=== PATIENT | female | born 2000 | race Caucasian/White ===

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

== ENCOUNTER → 2021-07-01 | Outpatient (CLI) | payer OTHER ==
[~2021-07-01] MED LIST changes: +ALBU90OI INH
[2021-07-01 15:20] LABS: BASOPHILS ABSOLUTE AUTO 0.08 K/mm3 (0.00-0.23); BASOPHILS PERCENT AUTO 1 % (0-2); EOSINOPHILS ABSOLUTE AUTO 0.09 K/mm3 (0.00-0.68); EOSINOPHILS PERCENT AUTO 1 % (0-6); Hematocrit 43.9 % (33.0-51.0); Hemoglobin 14.5 g/dL (11.5-16.0); IMMATURE GRAN ABSOLUTE AUTO 0.02 K/mm3 (0.00-0.10); IMMATURE GRAN PERCENT AUTO 0 % (0-1); LYMPHOCYTES ABSOLUTE AUTO 1.88 K/mm3 (0.84-5.20); LYMPHOCYTES PERCENT AUTO 21 % (21-46); MONOCYTES ABSOLUTE AUTO 0.56 K/mm3 (0.16-1.47); MONOCYTES PERCENT AUTO 6 % (4-13); Mean Corpuscular Volume 88 fL (80-100); Mean Platelet Volume 10.7 fL (9.1-12.4); NEUTROPHILS ABSOLUTE AUTO 6.45 K/mm3 (1.96-9.15); NEUTROPHILS PERCENT AUTO 71 % (41-73); Platelet Count 266 K/mm3 (150-400); RDW Coefficient Variation 13.2 % (11.7-14.2); RDW Standard Deviation 42.1 fL (35.1-46.3); White Blood Cell Count 9.08 K/mm3 (4.00-11.30)
[2021-07-01 15:29] LABS: Alanine Aminotransfer (ALT/SGP 14 U/L (12-78); Albumin, Blood 4.4 g/dL (3.4-5.0); Albumin/Globulin Ratio 1.2 (0.8-1.8); Alk Phos 71 U/L (40-126); Amylase, Blood 57 U/L (25-115); Anion Gap 11 mmol/L (6-16); Aspartate Aminotrans (AST/SGOT 12 U/L (12-37); Bilirubin, Total 0.4 mg/dL (0.1-1.0); Blood Urea Nitrogen 9 mg/dL (8-24); Bun/Creatinine Ratio 14.3 (12.0-20.0); CO2, Blood 26 mmol/L (21-32); Calcium, Blood 9.1 mg/dL (8.5-10.1); Chloride, Blood 105 mmol/L (98-108); Creatinine, Blood 0.63 mg/dL (0.40-1.00); Globulin, Blood 3.6 g/dL (2.2-4.0); Glomerular Filtration Rate >60 (60-); Glucose, Blood 85 mg/dL (70-99); Potassium, Blood 4.4 mmol/L (3.5-5.5); Sodium, Blood 142 mmol/L (136-145)
== END | disposition home or self-care (01) ==
LOC: LAB SHORT 15:15 → LAB 15:15
PROVIDERS: General Practice
DX: R10.9 Unspecified abdominal pain (principal)
CPT/HCPCS: 80053; 82150; 85025

== ENCOUNTER 2021-07-16 10:43 | Emergency (ER) | payer OTHER ==
[~2021-07-16] VITALS: Ht 162.6 cm; Wt 59.0 kg
[2021-07-16 11:15] LABS: Source, Urine Clean Catch
[2021-07-16 11:19] LABS: Appearance, Urine Clear (Clear); Bilirubin, Urine Neg (Neg); Blood, Urine 2+ (Neg); Color, Urine Yellow (P-Yellow); Glucose Qualitative, Urine Neg (Neg); Ketones, Urine Neg (Neg); Leukocyte Esterase, Urine 3+ (Neg); Nitrite, Urine Neg (Neg); Protein, Urine Neg (Neg); Specific Gravity, Urine 1.005 (1.003-1.022); Urobilinogen, Urine NORM (Normal)
[2021-07-16 11:57] LABS: Bacteria Few /hpf; Squamous Epithelial Cells Many /hpf (Few)
[2021-07-16] MEDS ORDERED: PHENA200 PO (12:06)
[2021-07-16] MEDS ORDERED: NITR100CA PO (12:06)
== END 2021-07-16 12:15 | disposition home or self-care (01) ==
LOC: ER 10:43
PROVIDERS: Emergency Medicine
DX: N39.0 Urinary tract infection, site not specified (principal); I10 Essential (primary) hypertension; Z88.8 Allergy status to other drugs, medicaments and biological substances; Z79.899 Other long term (current) drug therapy
CPT/HCPCS: 81001; 81025; 87077; 87086; 87186; 99283

== ENCOUNTER 2021-08-23 02:14 | Emergency (ER) | payer OTHER ==
[~2021-08-23] VITALS: Ht 165.1 cm; Wt 59.0 kg
[~2021-08-23 02:14] MED LIST changes: +NITR100CA PO
[2021-08-23] MEDS ORDERED: CYCL10 PO (04:59)
== END 2021-08-23 05:30 | disposition home or self-care (01) ==
LOC: ER 02:14
DX: M54.2 Cervicalgia (principal); R51.9 Headache, unspecified; M25.511 Pain in right shoulder; M25.551 Pain in right hip; M25.552 Pain in left hip; G47.00 Insomnia, unspecified; Z88.8 Allergy status to other drugs, medicaments and biological substances; Z79.899 Other long term (current) drug therapy; V49.9XXA Car occupant (driver) (passenger) injured in unspecified traffic accident, initial encounter
CPT/HCPCS: 70450; 71045; 72125; 72170; 99284-25; A9270

== ENCOUNTER → 2021-11-27 | Outpatient (CLI) | payer SELFPAY ==
[~2021-11-27] MED LIST changes: +AZIT250 PO; +CYCL10 PO; +GUAI600T33 PO
== END | disposition home or self-care (01) ==
LOC: LAB SHORT 18:44
DX: N39.0 Urinary tract infection, site not specified (principal)
CPT/HCPCS: 87077; 87086; 87186

== ENCOUNTER 2022-02-01 22:17 | Emergency (ER) | payer OTHER ==
[~2022-02-01] VITALS: Ht 162.6 cm; Wt 61.2 kg
[2022-02-01 22:48] LABS: BASOPHILS ABSOLUTE AUTO 0.08 K/mm3 (0.00-0.23); BASOPHILS PERCENT AUTO 1 % (0-2); EOSINOPHILS ABSOLUTE AUTO 0.14 K/mm3 (0.00-0.68); EOSINOPHILS PERCENT AUTO 1 % (0-6); Hematocrit 42.8 % (33.0-51.0); Hemoglobin 13.8 g/dL (11.5-16.0); IMMATURE GRAN ABSOLUTE AUTO 0.02 K/mm3 (0.00-0.10); IMMATURE GRAN PERCENT AUTO 0 % (0-1); LYMPHOCYTES ABSOLUTE AUTO 2.32 K/mm3 (0.84-5.20); LYMPHOCYTES PERCENT AUTO 21 % (21-46); MONOCYTES ABSOLUTE AUTO 0.81 K/mm3 (0.16-1.47); MONOCYTES PERCENT AUTO 8 % (4-13); Mean Corpuscular HGB 28.8 pg (26.0-34.0); Mean Corpuscular HGB Conc 32.2 g/dL (31.5-36.5); Mean Corpuscular Volume 89 fL (80-100); Mean Platelet Volume 10.3 fL (9.1-12.4); NEUTROPHILS ABSOLUTE AUTO 7.48 K/mm3 (1.96-9.15); NEUTROPHILS PERCENT AUTO 69 % (41-73); Platelet Count 277 K/mm3 (150-400); RDW Coefficient Variation 12.5 % (11.7-14.2); RDW Standard Deviation 41.1 fL (35.1-46.3); White Blood Cell Count 10.85 K/mm3 (4.00-11.30)
[2022-02-01 23:10] LABS: Alanine Aminotransfer (ALT/SGP 23 U/L (12-78); Albumin, Blood 3.9 g/dL (3.4-5.0); Albumin/Globulin Ratio 1.1 (0.8-1.8); Alk Phos 72 U/L (50-136); Anion Gap 8 mmol/L (6-16); Aspartate Aminotrans (AST/SGOT 13 U/L (12-37); Bilirubin, Total 0.3 mg/dL (0.1-1.0); Blood Urea Nitrogen 10 mg/dL (8-24); CO2, Blood 24 mmol/L (21-32); Chloride, Blood 107 mmol/L (98-108); Creatinine, Blood 0.53 mg/dL (0.40-1.00); Globulin, Blood 3.5 g/dL (2.2-4.0); Glomerular Filtration Rate >60 (60-); Glucose, Blood 91 mg/dL (70-99); Potassium, Blood 3.6 mmol/L (3.5-5.5); Sodium, Blood 139 mmol/L (136-145); Total Protein, Blood 7.4 g/dL (6.4-8.2)
== END 2022-02-02 02:43 | disposition home or self-care (01) ==
LOC: ER 22:17
PROVIDERS: Physician Assistant
DX: R10.31 Right lower quadrant pain (principal); N83.201 Unspecified ovarian cyst, right side; F32.A Depression, unspecified; Z79.899 Other long term (current) drug therapy; Z88.8 Allergy status to other drugs, medicaments and biological substances
CPT/HCPCS: 36415; 74177; 76830; 76856; 80053; 81025; 83690; 85025; 87086; Q9967

== ENCOUNTER 2022-12-02 21:11 | Emergency (ER) | payer OTHER ==
[~2022-12-02] VITALS: Ht 162.6 cm; Wt 68.0 kg
[~2022-12-02 21:11] MED LIST changes: +CRUTCH4 XX
== END 2022-12-03 01:02 | disposition home or self-care (01) ==
LOC: ER 21:11
DX: S93.401A Sprain of unspecified ligament of right ankle, initial encounter (principal); X50.1XXA Overexertion from prolonged static or awkward postures, initial encounter; Z88.8 Allergy status to other drugs, medicaments and biological substances; Z79.899 Other long term (current) drug therapy; G43.909 Migraine, unspecified, not intractable, without status migrainosus; I10 Essential (primary) hypertension
CPT/HCPCS: 73610; 99283-25

== ENCOUNTER 2022-12-11 11:10 | Emergency (ER) | payer OTHER ==
[~2022-12-11] VITALS: Ht 162.6 cm; Wt 68.0 kg
[2022-12-11] MEDS ORDERED: PROP80ER PO (13:45)
[2022-12-11 15:11] LABS: Ethanol (Alcohol), Blood, Med <3 mg/dL; Magnesium, Blood 2.5 mg/dL (1.6-2.4)
[2022-12-11 15:24] LABS: U Amphetamine Screen Not Detected; U Barbituate Screen Not Detected; U Benzodiazapine Screen Not Detected; U Buprenorphine Screen Not Detected; U Cannabinoids Screen Not Detected; U Cocaine Screen Not Detected; U Methadone Screen Not Detected; U Methamphetamine Screen Not Detected; U Opiates Screen Not Detected; U Oxycodone Screen Not Detected; U Phencyclidine Screen Not Detected; U Propoxyphene Screen Not Detected
[2022-12-11 15:30] LABS: BASOPHILS ABSOLUTE AUTO 0.08 K/mm3 (0.00-0.23); BASOPHILS PERCENT AUTO 1 % (0-2); EOSINOPHILS ABSOLUTE AUTO 0.14 K/mm3 (0.00-0.68); EOSINOPHILS PERCENT AUTO 2 % (0-6); Hematocrit 39.6 % (33.0-51.0); Hemoglobin 13.2 g/dL (11.5-16.0); IMMATURE GRAN ABSOLUTE AUTO 0.03 K/mm3 (0.00-0.10); IMMATURE GRAN PERCENT AUTO 0 % (0-1); LYMPHOCYTES ABSOLUTE AUTO 1.99 K/mm3 (0.84-5.20); LYMPHOCYTES PERCENT AUTO 25 % (21-46); MONOCYTES PERCENT AUTO 9 % (4-13); Mean Corpuscular HGB Conc 33.3 g/dL (31.5-36.5); Mean Corpuscular Volume 87 fL (80-100); Mean Platelet Volume 10.8 fL (9.1-12.4); NEUTROPHILS ABSOLUTE AUTO 5.14 K/mm3 (1.96-9.15); NEUTROPHILS PERCENT AUTO 64 % (41-73); Platelet Count 327 K/mm3 (150-400); RDW Coefficient Variation 12.2 % (11.7-14.2); RDW Standard Deviation 38.7 fL (35.1-46.3); Red Blood Cell Count 4.55 M/mm3 (3.80-5.20); White Blood Cell Count 8.08 K/mm3 (4.00-11.30)
[2022-12-11 15:37] LABS: Albumin, Blood 3.7 g/dL (3.4-5.0); Albumin/Globulin Ratio 1.1 (0.8-1.8); Bilirubin, Total 0.2 mg/dL (0.1-1.0); Bun/Creatinine Ratio 20.1 (12.0-20.0); Calcium, Blood 9.1 mg/dL (8.5-10.1); Creatinine, Blood 0.7 mg/dL (0.40-1.00); Globulin, Blood 3.5 g/dL (2.2-4.0); Total Protein, Blood 7.2 g/dL (6.4-8.2)
== END 2022-12-11 21:52 | disposition home or self-care (01) ==
LOC: ER 11:10
PROVIDERS: Emergency Medicine
DX: T44.7X1A Poisoning by beta-adrenoreceptor antagonists, accidental (unintentional), initial encounter (principal); Z88.8 Allergy status to other drugs, medicaments and biological substances; Z79.899 Other long term (current) drug therapy
CPT/HCPCS: 36415; 80053; 83735; 85025; 96360; 99284-25; G0480; J7030

== ENCOUNTER 2023-02-19 20:42 | Emergency (ER) | payer OTHER ==
[~2023-02-19] VITALS: Ht 162.6 cm; Wt 70.3 kg
[~2023-02-19 20:42] MED LIST changes: +PROP80ER PO
[2023-02-19 20:52] VITALS: BP 107/70
[2023-02-19] MEDS ORDERED: PRAZOSIN HCL1 M2 PO (20:56)
[2023-02-19] MEDS ORDERED: PROPRANOLOL HCL80 MG PO (20:56)
[2023-02-19] MEDS ORDERED: LAMOTRIGINE100 M1 PO (20:56)
[2023-02-19] MEDS ORDERED: CELEXA10 MG PO (20:57)
[2023-02-19] MEDS ORDERED: VITAMIN D325 MC3 (20:57)
[2023-02-19] MEDS ORDERED: Cyclobenzaprine5 MG PO (22:35)
== END 2023-02-19 23:08 | disposition home or self-care (01) ==
LOC: ER 20:42
DX: S16.1XXA Strain of muscle, fascia and tendon at neck level, initial encounter (principal); I10 Essential (primary) hypertension; Z88.8 Allergy status to other drugs, medicaments and biological substances; Z79.899 Other long term (current) drug therapy; V43.52XA Car driver injured in collision with other type car in traffic accident, initial encounter
CPT/HCPCS: 99283

== ENCOUNTER 2023-03-11 08:48 | Emergency (ER) | payer OTHER ==
[~2023-03-11] VITALS: Ht 162.6 cm; Wt 68.0 kg
[~2023-03-11 08:48] MED LIST changes: +CELEXA10 MG PO; +Cyclobenzaprine5 MG PO; +LAMOTRIGINE100 M1 PO; +PRAZOSIN HCL1 M2 PO; +PROPRANOLOL HCL80 MG PO; +VITAMIN D325 MC3 PO
[2023-03-11 10:21] LABS: BASOPHILS ABSOLUTE AUTO 0.08 K/mm3 (0.00-0.23); BASOPHILS PERCENT AUTO 1 % (0-2); EOSINOPHILS ABSOLUTE AUTO 0.15 K/mm3 (0.00-0.68); EOSINOPHILS PERCENT AUTO 3 % (0-6); Hematocrit 41.9 % (33.0-51.0); Hemoglobin 13.8 g/dL (11.5-16.0); IMMATURE GRAN ABSOLUTE AUTO 0.01 K/mm3 (0.00-0.10); IMMATURE GRAN PERCENT AUTO 0 % (0-1); LYMPHOCYTES ABSOLUTE AUTO 1.46 K/mm3 (0.84-5.20); LYMPHOCYTES PERCENT AUTO 26 % (21-46); MONOCYTES ABSOLUTE AUTO 0.49 K/mm3 (0.16-1.47); MONOCYTES PERCENT AUTO 9 % (4-13); Mean Corpuscular HGB 28.6 pg (26.0-34.0); Mean Corpuscular HGB Conc 32.9 g/dL (31.5-36.5); Mean Corpuscular Volume 87 fL (80-100); Mean Platelet Volume 10.9 fL (9.1-12.4); NEUTROPHILS PERCENT AUTO 62 % (41-73); Platelet Count 280 K/mm3 (150-400); RDW Coefficient Variation 12.7 % (11.7-14.2); RDW Standard Deviation 40.3 fL (35.1-46.3); Red Blood Cell Count 4.82 M/mm3 (3.80-5.20); White Blood Cell Count 5.69 K/mm3 (4.00-11.30)
[2023-03-11 10:45] LABS: Albumin/Globulin Ratio 1.2 (0.8-1.8); Bilirubin, Total 0.3 mg/dL (0.1-1.0); Bun/Creatinine Ratio 15.8 (12.0-20.0); Calcium, Blood 9.3 mg/dL (8.5-10.1); Creatinine, Blood 0.7 mg/dL (0.40-1.00); Globulin, Blood 3.3 g/dL (2.2-4.0); Total Protein, Blood 7.3 g/dL (6.4-8.2)
[2023-03-11] MEDS ORDERED: NAPR500 PO (13:28)
[2023-03-11] MEDS ORDERED: GABA300 PO (13:29)
[2023-03-11 14:00] VITALS: BP 110/82
== END 2023-03-11 13:50 | disposition home or self-care (01) ==
LOC: ER 08:48
PROVIDERS: Emergency Medicine
DX: M79.642 Pain in left hand (principal); M79.641 Pain in right hand; M54.12 Radiculopathy, cervical region; I10 Essential (primary) hypertension; J45.909 Unspecified asthma, uncomplicated; Z88.8 Allergy status to other drugs, medicaments and biological substances; Z79.899 Other long term (current) drug therapy
CPT/HCPCS: 72141; 80053; 85025

== ENCOUNTER 2023-04-19 01:54 | Emergency (ER) | payer OTHER ==
[~2023-04-19] VITALS: Ht 162.6 cm; Wt 72.6 kg
[~2023-04-19 01:54] MED LIST changes: +GABA300 PO; +NAPR500 PO
[2023-04-19 02:22] LABS: BASOPHILS PERCENT AUTO 1 % (0-2); EOSINOPHILS ABSOLUTE AUTO 0.16 K/mm3 (0.00-0.68); EOSINOPHILS PERCENT AUTO 2 % (0-6); Hematocrit 43.4 % (33.0-51.0); Hemoglobin 14.5 g/dL (11.5-16.0); IMMATURE GRAN ABSOLUTE AUTO 0.04 K/mm3 (0.00-0.10); IMMATURE GRAN PERCENT AUTO 0 % (0-1); LYMPHOCYTES ABSOLUTE AUTO 2.85 K/mm3 (0.84-5.20); LYMPHOCYTES PERCENT AUTO 32 % (21-46); MONOCYTES ABSOLUTE AUTO 0.81 K/mm3 (0.16-1.47); MONOCYTES PERCENT AUTO 9 % (4-13); Mean Corpuscular HGB 28.8 pg (26.0-34.0); Mean Corpuscular HGB Conc 33.4 g/dL (31.5-36.5); Mean Corpuscular Volume 86 fL (80-100); Mean Platelet Volume 10.5 fL (9.1-12.4); NEUTROPHILS ABSOLUTE AUTO 4.93 K/mm3 (1.96-9.15); NEUTROPHILS PERCENT AUTO 56 % (41-73); Platelet Count 354 K/mm3 (150-400); RDW Coefficient Variation 12.8 % (11.7-14.2); RDW Standard Deviation 39.8 fL (35.1-46.3); Red Blood Cell Count 5.04 M/mm3 (3.80-5.20); White Blood Cell Count 8.89 K/mm3 (4.00-11.30)
[2023-04-19 02:33] LABS: Source, Urine Clean Catch
[2023-04-19 02:37] LABS: Bilirubin, Urine Neg (Neg); Blood, Urine Neg (Neg); Glucose Qualitative, Urine Neg (Neg); Ketones, Urine Neg (Neg); Leukocyte Esterase, Urine Neg (Neg); Nitrite, Urine Neg (Neg); Protein, Urine Neg (Neg); Specific Gravity, Urine 1.005 (1.003-1.022); Urobilinogen, Urine NORM (Normal)
[2023-04-19 02:43] LABS: Appearance, Urine Clear (Clear); Color, Urine Yellow (P-Yellow)
[2023-04-19 02:48] LABS: Albumin, Blood 4.2 g/dL (3.4-5.0); Albumin/Globulin Ratio 1.2 (0.8-1.8); Bilirubin, Total 0.3 mg/dL (0.1-1.0); Bun/Creatinine Ratio 13.9 (12.0-20.0); Calcium, Blood 9.1 mg/dL (8.5-10.1); Creatinine, Blood 0.58 mg/dL (0.40-1.00); Globulin, Blood 3.6 g/dL (2.2-4.0); Potassium, Blood 4.4 mmol/L (3.5-5.5); Total Protein, Blood 7.8 g/dL (6.4-8.2)
[2023-04-19] MEDS ORDERED: ONDA4ODT MM (05:08)
[2023-04-19 05:20] VITALS: BP 99/58
== END 2023-04-19 05:24 | disposition home or self-care (01) ==
LOC: ER 01:54
PROVIDERS: Student in an Organized Health Care Education/Training Program
DX: R10.31 Right lower quadrant pain (principal); Z88.8 Allergy status to other drugs, medicaments and biological substances; Z79.899 Other long term (current) drug therapy; I10 Essential (primary) hypertension; J45.909 Unspecified asthma, uncomplicated
CPT/HCPCS: 76830; 76856; 80053; 81003; 81025; 83690; 85025; 96374; 99284-25; A9270; J3010

== ENCOUNTER 2023-06-05 16:21 | Emergency (ER) | payer OTHER ==
[~2023-06-05] VITALS: Ht 162.6 cm; Wt 68.0 kg
[~2023-06-05 16:21] MED LIST changes: +ONDA4ODT MM
[2023-06-05 16:45] VITALS: BP 122/78
== END 2023-06-05 18:24 | disposition left against medical advice (07) ==
LOC: ER 16:21
DX: H54.3 Unqualified visual loss, both eyes (principal); Z53.21 Procedure and treatment not carried out due to patient leaving prior to being seen by health care provider
CPT/HCPCS: 99281

== ENCOUNTER → 2023-07-14 | Outpatient (CLI) | payer OTHER | END | disposition home or self-care (01) | LOC: LAB SHORT 17:25 → LAB 17:25 | DX: R53.83 Other fatigue (principal) | CPT/HCPCS: 84443 ==

== ENCOUNTER 2023-07-21 13:46 | Emergency (ER) | payer OTHER ==
[~2023-07-21] VITALS: Ht 162.6 cm; Wt 74.8 kg
[2023-07-21 14:02] VITALS: BP 117/63
== END 2023-07-21 16:01 | disposition home or self-care (01) ==
LOC: ER 13:46
DX: K59.00 Constipation, unspecified (principal); I10 Essential (primary) hypertension; Z79.899 Other long term (current) drug therapy; Z88.8 Allergy status to other drugs, medicaments and biological substances
CPT/HCPCS: 99283; A9270

== ENCOUNTER 2023-08-25 07:29 | Emergency (ER) | payer OTHER ==
[~2023-08-25] VITALS: Ht 162.6 cm; Wt 75.3 kg
[2023-08-25 07:43] VITALS: BP 110/80
== END 2023-08-25 09:47 | disposition home or self-care (01) ==
LOC: ER 07:29
DX: G43.909 Migraine, unspecified, not intractable, without status migrainosus (principal); I10 Essential (primary) hypertension; J45.909 Unspecified asthma, uncomplicated; Z79.899 Other long term (current) drug therapy; Z88.8 Allergy status to other drugs, medicaments and biological substances
CPT/HCPCS: 96374; 96375; 99283-25; J1100; J1885; J2765

== ENCOUNTER 2024-03-26 22:30 | Inpatient (IN) | payer OTHER ==
[~2024-03-26] VITALS: Ht 162.6 cm; Wt 67.0 kg
[~2024-03-26 22:30] MED LIST changes: +TRAZ100 PO; -TRAZ50 PO
[2024-03-26 23:29] LABS: Ethanol (Alcohol), Blood, Med <3 mg/dL; Salicylate <1.7 mg/dL (2.8-20.0); Thyroxine (T4) 8.7 ug/dL (4.8-13.9)
[2024-03-26 23:33] LABS: Acetaminophen, Random <2.0 ug/mL (10.0-30.0); Alanine Aminotransfer (ALT/SGP 20 U/L (12-78); Albumin/Globulin Ratio 1.2 (0.8-1.8); Alk Phos 68 U/L (50-136); Anion Gap 11 mmol/L (3-11); Aspartate Aminotrans (AST/SGOT 33 U/L (12-37); Bilirubin, Total 0.5 mg/dL (0.1-1.0); Blood Urea Nitrogen 7 mg/dL (8-24); CO2, Blood 18 mmol/L (21-32); Calcium, Blood 9.2 mg/dL (8.5-10.1); Chloride, Blood 114 mmol/L (98-108); Creatinine, Blood 0.54 mg/dL (0.40-1.00); Globulin, Blood 3.2 g/dL (2.2-4.0); Glomerular Filtration Rate 133 (60-); Glucose, Blood 110 mg/dL (70-99); Potassium, Blood 3.6 mmol/L (3.5-5.5); Sodium, Blood 139 mmol/L (136-145); Total Protein, Blood 7.2 g/dL (6.4-8.2)
[2024-03-27] VITALS (13 sets, daily range): BP systolic 85–101; BP diastolic 45–67
[2024-03-27] LABS: BASOPHILS ABSOLUTE AUTO 0.06 K/mm3 (0.00-0.23); BASOPHILS PERCENT AUTO 1 % (0-2); EOSINOPHILS ABSOLUTE AUTO 0.08 K/mm3 (0.00-0.68); EOSINOPHILS PERCENT AUTO 1 % (0-6); Hematocrit 39.7 % (33.0-51.0); Hemoglobin 12.9 g/dL (11.5-16.0); IMMATURE GRAN ABSOLUTE AUTO 0.01 K/mm3 (0.00-0.10); IMMATURE GRAN PERCENT AUTO 0 % (0-1); LYMPHOCYTES ABSOLUTE AUTO 1.31 K/mm3 (0.84-5.20); LYMPHOCYTES PERCENT AUTO 17 % (21-46); MONOCYTES ABSOLUTE AUTO 0.67 K/mm3 (0.16-1.47); MONOCYTES PERCENT AUTO 9 % (4-13); Mean Corpuscular HGB 28.9 pg (26.0-34.0); Mean Corpuscular HGB Conc 32.5 g/dL (31.5-36.5); Mean Corpuscular Volume 89 fL (80-100); Mean Platelet Volume 10.4 fL (9.1-12.4); NEUTROPHILS ABSOLUTE AUTO 5.67 K/mm3 (1.96-9.15); NEUTROPHILS PERCENT AUTO 73 % (41-73); Platelet Count 263 K/mm3 (150-400); RDW Coefficient Variation 13.6 % (11.7-14.2); RDW Standard Deviation 44.4 fL (35.1-46.3); Red Blood Cell Count 4.46 M/mm3 (3.80-5.20)
[2024-03-27 00:01] LABS: Source, Urine Clean Catch
[2024-03-27 00:10] LABS: Appearance, Urine Clear (Clear); Bilirubin, Urine Neg (Neg); Blood, Urine 2+ (Neg); Color, Urine Yellow (P-Yellow); Glucose Qualitative, Urine Neg (Neg); Ketones, Urine 1+ (Neg); Leukocyte Esterase, Urine Neg (Neg); Nitrite, Urine Neg (Neg); Protein, Urine Neg (Neg); Specific Gravity, Urine 1.015 (1.003-1.022); Urobilinogen, Urine NORM (Normal)
[2024-03-27 00:11] LABS: Red Blood Cells, Urine 0-2 /hpf (0-2); Squamous Epithelial Cells Few /hpf (Few); White Blood Cells, Urine 0-2 /hpf (0-5)
[2024-03-27 00:12] LABS: Bacteria Few /hpf
[2024-03-27 00:18] LABS: U Amphetamine Screen Not Detected; U Barbituate Screen Not Detected; U Benzodiazapine Screen Not Detected; U Buprenorphine Screen Not Detected; U Cannabinoids Screen Not Detected; U Cocaine Screen Not Detected; U Methadone Screen Not Detected; U Methamphetamine Screen Not Detected; U Opiates Screen Not Detected; U Oxycodone Screen Not Detected; U Phencyclidine Screen Not Detected
[2024-03-27] MEDS ORDERED: NS 1,000 ML IV SCH ×2 (00:35→10:30)
[2024-03-27] MEDS ORDERED: Ondansetron HCl 2 MG / ML 2ML Vial IV PRN (01:15)
[2024-03-27] MEDS ORDERED: NS 1,000 ML IV ONE (01:15)
--- NOTE | 2024-03-27 05:47 | NUR ---
SHIFT SUMMARY PATIENT ADMITTED FROM ED FOR SI/OVERDOSE. 1:1 SITTER AT BEDSIDE. PATIENT ALERT AND ORIENTED x4, SOME DROWSINESS. DENIES PAIN/DISCOMFORT. DENIES SUICIDAL IDEATION AT THIS TIME. SR - SB ON TELE, CONTINUOUS MONITORING. SATS > 90% ON RA. NPO PER MD ORDERS. PT HAS NOT HAD ANY N/V SINCE ARRIVAL FROM ED. IVF INFUSING PER ORDERS. NO ACUTE EVENTS SINCE ARRIVAL FROM ED. PATIENT APPEARS TO BE RESTING IN BED WITH EYES CLOSED, BREATHING UNLABORED WITH EVEN CHEST RISE AND FALL.
[2024-03-27 08:55] LABS: BASOPHILS ABSOLUTE AUTO 0.06 K/mm3 (0.00-0.23); BASOPHILS PERCENT AUTO 1 % (0-2); EOSINOPHILS ABSOLUTE AUTO 0.15 K/mm3 (0.00-0.68); EOSINOPHILS PERCENT AUTO 2 % (0-6); Hematocrit 36.9 % (33.0-51.0); Hemoglobin 11.8 g/dL (11.5-16.0); IMMATURE GRAN ABSOLUTE AUTO 0.01 K/mm3 (0.00-0.10); IMMATURE GRAN PERCENT AUTO 0 % (0-1); LYMPHOCYTES ABSOLUTE AUTO 2.05 K/mm3 (0.84-5.20); LYMPHOCYTES PERCENT AUTO 33 % (21-46); MONOCYTES ABSOLUTE AUTO 0.66 K/mm3 (0.16-1.47); MONOCYTES PERCENT AUTO 11 % (4-13); Mean Corpuscular HGB 29.3 pg (26.0-34.0); Mean Corpuscular Volume 92 fL (80-100); Mean Platelet Volume 10.5 fL (9.1-12.4); NEUTROPHILS ABSOLUTE AUTO 3.33 K/mm3 (1.96-9.15); NEUTROPHILS PERCENT AUTO 53 % (41-73); Platelet Count 243 K/mm3 (150-400); RDW Coefficient Variation 13.8 % (11.7-14.2); RDW Standard Deviation 46.8 fL (35.1-46.3); Red Blood Cell Count 4.03 M/mm3 (3.80-5.20); White Blood Cell Count 6.26 K/mm3 (4.00-11.30)
[2024-03-27] MEDS ORDERED: Enoxaparin 40 MG/0.4 ML SYR SC SCH (09:00)
[2024-03-27 09:17] LABS: Albumin, Blood 3.4 g/dL (3.4-5.0); Albumin/Globulin Ratio 1.3 (0.8-1.8); Bilirubin, Total 0.6 mg/dL (0.1-1.0); Bun/Creatinine Ratio 9.8 (12.0-20.0); Creatinine, Blood 0.62 mg/dL (0.40-1.00); Globulin, Blood 2.6 g/dL (2.2-4.0); Potassium, Blood 3.7 mmol/L (3.5-5.5)
--- NOTE | 2024-03-27 10:24 | NUR ---
UPDATE PT ALERT AND ORIENTED, BUT REPORTS BEING SLEEPY. HR NSR 70'S. BP SOFT WITH MAP OF 61. DR. HARRISON MADE AWARE AND NEW ORDERS TO INCREASE NS INFUSION TO 200MLS/HR. WILL CONTINUE TO MONITOR CLOSELY.
--- NOTE | 2024-03-27 16:53 | NUR ---
SHIFT SUMMARY PT REMAINS ALERT AND ORIENTED. BP STABLE. HR SINUS LYDIA 50'S. O2 SATS REMAIN ABOVE 90% ON RA. PT DENIES ANY PAIN/DIZZINESS/NAUSEA. PT ABLE TO REPOSITION INDEPENDENTLY. PT DENIES ANY SI AT THIS TIME. PT STATES SHE REGRETS TAKING PILLS. PLAN FOR INPATIENT UPON DISCHARGE. NS INFUSING PER ORDERS. WILL CONTINUE TO MONITOR CLOSELY AND REPORT TO ONCOMING RN
[2024-03-28 03:57] VITALS: BP 91/59
[2024-03-28 04:36] LABS: Bun/Creatinine Ratio 12.7 (12.0-20.0); Calcium, Blood 8.2 mg/dL (8.5-10.1); Creatinine, Blood 0.55 mg/dL (0.40-1.00); Potassium, Blood 3.6 mmol/L (3.5-5.5)
--- NOTE | 2024-03-28 05:20 | NUR ---
SHIFT SUMMARY ASSUMED CARE OF PATIENT AT 1900. PATIENT ALERT AND ORIENTED, COOPERATIVE WITH CARES, DENIES SUICIDAL IDEATION AT THIS TIME. SHE REPORTS FEELING "HAZY FROM THE MEDS" SHE TOOK. SPO2 > 90% ON RA. BREATHING UNLABORED, EVEN CHEST RISE AND FALL. DENIES CHEST PAIN/PRESSURE. BP SOFT BUT STABLE WITH MAP > 60. POOR APPETITE, LITTLE INTEREST IN EATING NOTED AFTER PARENTS BROUGHT HER FOOD IN LAST NIGHT. NO ACUTE EVENTS OVERNIGHT.
[2024-03-28 07:19] VITALS: BP 101/63
[2024-03-28 15:16] VITALS: BP 101/59
--- NOTE | 2024-03-28 15:55 | NUR ---
UPDATE PT REMAINS ALERT AND ORIENTED. VS STABLE. HR REMAINS NSR 70'S. PT DENIES ANY PAIN OR NAUSEA. APPETITE IS IMPROVED THIS SHIFT. POISON CONTROL UPDATED THIS SHIFT AND THEY HAVE CLOSED THE CASE. BED ASSIGNMENT PROVIDED ON MEDICAL FLOOR. REPORT GIVEN TO MEDICAL FLOOR RN. PT TO BE TRANSFERRED VIA
--- NOTE | 2024-03-28 19:16 | NUR ---
arrived a/o very pleasent young female with sitter at bedside quietly laying in bed, answers questions appropiatly and states she no longer has any harmful thoughts. will cont to monitor
[2024-03-28 19:17] VITALS: BP 108/70
[2024-03-28] MEDS ORDERED: Lithium Carbonate 300 MG Cap PO SCH (21:00)
[2024-03-28] MEDS ORDERED: LamoTRIgine 25 MG Tab PO SCH (21:00)
[2024-03-29 03:41] VITALS: BP 98/61
--- NOTE | 2024-03-29 06:02 | NUR ---
END OF SHIFT SUMMARY PT A&OX4. PLEASANT AND COOPERATIVE. DENIED SI. REMAINS WITH 1:1 SITTER MONITORING. NO ACUTE EVENTS OVERNIGHT.
[2024-03-29 07:04] VITALS: BP 98/59
--- NOTE | 2024-03-29 14:00 | NUR ---
[facility] CALLED TO INFORM THAT THEY HAVE A BED FOR THE PATIENT. THEY REQUESTED A CALL BACK NUMBER FOR THE DOCTOR TO CALL BACK AND ASKED IF WE SET UP TRANSPORT FOR THE PATIENT. INFORMED HER THAT [facility] CAN SET UP TRANSPORT. SHE V/U AND STATED THE DR WOULD CALL BACK IN A FEW MINUTES.
[2024-03-29 15:34] VITALS: BP 114/78
[2024-03-29] MEDS ORDERED: TOPI25 PO (16:52)
[2024-03-29 17:21] VITALS: BP 114/78
--- NOTE | 2024-03-29 17:25 | NUR ---
DISCHARGE A&OX4, COOPERATIVE, AND PLEASANT. INDEPENDENT IN ROOM WITH A 1:1 SITTER. DENIED ANY SUICIDAL IDEATION. VERBALIZED HAVING DEPRESSION. DENIED ANY CP/PRESSURE, HEADACHE, DIZZINESS, OR SOB. NO ACUTE CHANGES THIS SHIFT. REPORT CALLED TO JAKE AT [facility]. PATIENT'S MOTHER NOTIFIED OF TRANSFER. PATIENT CURRENTLY SITTING IN BED WATCHING TV. BED IN LOWEST POSITION. CALL LIGHT WITHIN REACH. TRANSPORT SCHEDULED FOR 1829.
[2024-03-29] MEDS ORDERED: Nystatin 100,000 Unit/GM CREAM 15 GM TOP SCH (21:00)
[2024-03-30] MEDS ORDERED: Cholecalciferol 1000 Unit Tablet (=25MCG) PO SCH (09:00)
== END 2024-03-29 18:48 | DRG 918 ==
LOC: ER 22:30 → PCU 22:31 → MEDS 03-28 16:16
PROVIDERS: Emergency Medicine; Student in an Organized Health Care Education/Training Program; ADMIT Internal Medicine
DX: T44.7X2A Poisoning by beta-adrenoreceptor antagonists, intentional self-harm, initial encounter (principal); F31.4 Bipolar disorder, current episode depressed, severe, without psychotic features; T43.212A Poisoning by selective serotonin and norepinephrine reuptake inhibitors, intentional self-harm, initial encounter; T44.6X2A Poisoning by alpha-adrenoreceptor antagonists, intentional self-harm, initial encounter; R00.1 Bradycardia, unspecified; F43.10 Post-traumatic stress disorder, unspecified; F41.9 Anxiety disorder, unspecified; I95.9 Hypotension, unspecified; L30.4 Erythema intertrigo; Z88.8 Allergy status to other drugs, medicaments and biological substances; Z90.89 Acquired absence of other organs; Z79.899 Other long term (current) drug therapy
CPT/HCPCS: 36415; 80048; 80053; 81001; 81025; 83880; 84436; 84443; 85025; 93005; 93010; 96360; 96361; 99285-25; A9270; G0378; G0480; J7030

== ENCOUNTER → 2024-05-27 | Outpatient (CLI) | payer OTHER ==
[~2024-05-27] MED LIST changes: +TOPI25 PO
[2024-05-28 13:10] LABS: Bacterial Vaginosis PCR Negative (NEGATIVE); Candida Group, PCR NOT DETECTED (NOT DETECT)
[2024-05-28 13:58] LABS: Candida glabrata-krusei, PCR DETECTED (NOT DETECT)
== END | disposition home or self-care (01) ==
LOC: LAB SHORT 09:43 → LAB 09:43
PROVIDERS: Student in an Organized Health Care Education/Training Program
DX: Z12.4 Encounter for screening for malignant neoplasm of cervix (principal); N89.8 Other specified noninflammatory disorders of vagina
CPT/HCPCS: 87481; 87661; 87801

== ENCOUNTER → 2024-09-19 | Outpatient (CLI) | payer OTHER | END | disposition home or self-care (01) | LOC: LAB 10:13 → LAB SHORT 10:13 | DX: N39.0 Urinary tract infection, site not specified (principal) | CPT/HCPCS: 87077; 87086; 87186 ==